=== PATIENT | female | born 1995 | race Caucasian/White ===

== ENCOUNTER → 2018-04-23 | Outpatient (CLI) | payer OTHER | LOC: OD 15:58 | PROVIDERS: ATTEND Obstetrics & Gynecology | DX: Z34.00 Encounter for supervision of normal first pregnancy, unspecified trimester (principal) | CPT/HCPCS: 36415; 84702 ==

== ENCOUNTER → 2018-05-07 | Outpatient (CLI) | payer OTHER | LOC: OD 10:07 | PROVIDERS: ATTEND Nurse Practitioner Primary Care | DX: O20.0 Threatened abortion (principal) | CPT/HCPCS: 36415; 84702 ==